=== PATIENT | female | born 1975 | race Caucasian/White ===

== ENCOUNTER 2018-12-08 07:14 | Emergency (ER) | payer BC ==
[~2018-12-08] VITALS: Ht 149.9 cm; Wt 83.5 kg
[2018-12-08 08:17] VITALS: BP 116/69
[2018-12-08 09:49] LABS: microscopic required? NO
[2018-12-08 11:34] LABS: urine erythrocyte NEGATIVE (NEGATIVE)
== END 2018-12-08 09:49 | disposition home or self-care (01) ==
LOC: ED 07:14
PROVIDERS: Specialist
DX: J20.9 Acute bronchitis, unspecified (principal)
CPT/HCPCS: 87804